=== PATIENT | female | born 1970 | race Hispanic/Latino ===

== ENCOUNTER 2020-01-09 08:10 | Outpatient (CLI) | payer OTHER ==
--- NOTE | 2020-01-09 09:29 | ULT ---
ULTRASOUND PELVIC ULTRASOUND TRANSVAGINAL DOPPLER DUPLEX: DATE: 01/09/2020. HISTORY: Premenopausal menorrhagia in a 49-year-old female. TECHNIQUE: Transabdominal transducer and Endovaginal transducer used to visualize intrapelvic contents. Color fl ow Doppler and Pulsed Doppler spectral waveform analysis. FINDINGS: Uterus measures approximately 10.5 x 5.5 x 8 cm. Multiple solid myometrial masses with heterogeneous echogenicity. A typical one measures 3.7 cm in t he posterior aspect of the uterine fundus-body. Endometrial stripe is difficult to visualize because of the multiple fibroids. It is measured as christopher roximately 0.4 cm (4 mm). No free fluid in the cul-de-sac. Bilateral ovaries not visualized. IMPRESSION: 1. Uterus enlarged by multiple leiomyomata (fibroids). 2. Unable to visualize bilateral ovaries. CARMEN Rich POS: CET
== END 2020-01-09 08:11 | disposition home or self-care (01) ==
LOC: MADULT 08:10
PROVIDERS: ATTEND Family Medicine
DX: N92.4 Excessive bleeding in the premenopausal period (principal); D25.9 Leiomyoma of uterus, unspecified; N85.2 Hypertrophy of uterus
CPT/HCPCS: 76856